=== PATIENT | male | born 1950 | race Caucasian/White ===

== ENCOUNTER → 2016-12-06 | Outpatient (CLI) | payer OTHER ==
--- NOTE | 2016-12-06 10:48 | XR ---
EXAMINATION TYPE: XR hand complete RT DATE OF EXAM: 12/06/2016 10:40 AM COMPARISON: NONE HISTORY: Puncture wound with swelling and possible infection TECHNIQUE: Three views are submitted. FINDINGS: The osseous structures are intact. Arthropathy of the DIP joints noted. Previous trauma suspected inv olving the first metacarpal. Mild arthropathy first MCP joint. No foreign body. No destructive changes to suggest osteomyelitis. IMPRESSION: 1. No diagnostic evidence of osteomyelitis..
== END | disposition home or self-care (01) ==
LOC: RADXRMAIN 10:19
PROVIDERS: ATTEND Emergency Medicine
DX: L03.011 Cellulitis of right finger (principal); S61.229A Laceration with foreign body of unspecified finger without damage to nail, initial encounter

== ENCOUNTER → 2016-12-09 | Outpatient (CLI) | payer OTHER ==
[2016-12-09 13:16] LABS: Basophils # (A) 0.1 k/uL (0-0.2); Basophils % (A) 1 %; CH 30.6; CHCM 33.3; Eosinophils # (A) 0.4 k/uL (0-0.7); Eosinophils % (A) 5 %; HCT 50.1 % (39.0-53.0); HDW 2.69; HGB 16.7 gm/dL (13.0-17.5); Luc # (Auto) 0.23; Luc % (Auto) 3; Lymphocytes # (A) 2.5 k/uL (1.0-4.8); Lymphocytes % (A) 28 %; MCH 30.7 pg (25.0-35.0); MCHC 33.2 g/dL (31.0-37.0); MCV 92.4 fL (80.0-100.0); Mean Platelet Volume 6.1; Monocytes # (A) 0.6 k/uL (0-1.0); Monocytes % (A) 6 %; Neutrophils # (A) 4.9 k/uL (1.3-7.7); Neutrophils % (A) 57 %; RBC 5.43 m/uL (4.30-5.90); RDW 14.7 % (11.5-15.5); WBC 8.7 k/uL (3.8-10.6); WBC (Perox) 8.66
== END | disposition home or self-care (01) ==
LOC: LABPAT 12:56
PROVIDERS: ATTEND Orthopaedic Surgery
DX: Z01.812 Encounter for preprocedural laboratory examination (principal); L02.511 Cutaneous abscess of right hand
CPT/HCPCS: 36415; 85025

== ENCOUNTER 2016-12-10 10:25 | Day surgery (SDC) | payer OTHER ==
[2016-12-09 14:17] VITALS: BMI 21.1
[~2016-12-10 10:25] MED LIST: DEXAMETHASONE SOD PHOSPHATE 10 MG/ML 1 ML VIAL IV ONE; HYDROmorphone 1 MG/ML 1 ML SYRINGE IVP PRN; LACTATED RINGERS 1,000 ML IV SCH; MIDAZOLAM 2 MG/2 ML VIAL IV PRN; ONDANSETRON 4 MG/2 ML VIAL IVP ONE; ceFAZolin 1,000 MG in DEXTROSE/WATER 1 50ML.BAG IV ONE
[2016-12-10 12:26] VITALS: TEMP 97.3
[2016-12-10] MEDS ORDERED: LIDOCAINE 1% 20 ML VIAL (10MG/ML) FOR IV START INTRADERMA ONE (12:30)
--- NOTE | 2016-12-10 13:19 | HP ---
DATE OF ADMISSION: CHIEF COMPLAINT: Right thumb swelling and pain. 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 He was unloading a machine when several metallic slivers went through his glove into his right thumb. He pulled those out himself. Subsequently, he had increasing pain and swelling and went to the [facility] 12/06[facility]. He had an attempted incision and drainage and in addition was placed on oral antibiotics. He notes progressive drainage and swelling. He has been off work. PAST MEDICAL HISTORY: Negative. PAST SURGICAL HISTORY: Negative. CURRENT MEDICATIONS: Aleve and Bactrim. FAMILY HISTORY: Significant for cancer. SOCIAL HISTORY: Significant for 1 pack per day tobacco use. Sixteen-point review of systems otherwise reviewed and is noncontributory. He denies fevers or chills. On examination, the patient is approximately 5 feet 9 inches, 150 pounds of mesomorphic habitus. HEENT exam is nonfocal. Neck is supple. He is nontender about the right shoulder, elbow and wrist. On examination of his right hand, he has large swelling of the distal tip of the right thumb. He has a small puncture wound over the volar distal tip. There is purulent drainage along with moderate fluctuance. He is nontender over the flexor sheath proximally. He has mild right stiffness. The nail plate is intact. Capillary refill is less than 2 seconds. Light touch is distally intact. X-rays to include multiple views of the right hand from the hospital show no definite radiopaque foreign body. IMPRESSION: Right thumb felon/status post puncture wound. RECOMMENDATIONS: I talked to the patient regarding his treatment options. At this point, I would recommend proceeding with formal incision and drainage with irrigation and debridement. We will likely remove his nail plate as well. Likely, we will perform that as an outpatient procedure utilizing local anesthetic and IV sedation. The risks and benefits were discussed at length in layman's terms.
[2016-12-10] MEDS ORDERED: PROPOFOL 10 MG/ML 20 ML VIAL IV ONE (13:26)
[2016-12-10] MEDS ORDERED: MIDAZOLAM 2 MG/2 ML VIAL ONE (13:26)
[2016-12-10] MEDS ORDERED: LIDOCAINE 1% INJ 10MG/ML (20 ML MDV) ONE (13:26)
[2016-12-10] MEDS ORDERED: fentaNYL (PF) 50 MCG/ML 2 ML AMP ONE (13:26)
[2016-12-10] MEDS ORDERED: BUPIVACAINE (PF) 0.25% 30 ML VIAL SQ ONE (13:26)
[2016-12-10] MEDS ORDERED: PHENYLEPHRINE-0.9% NACL SYG 1 MG/10 ML SYRINGE ONE (13:26)
--- NOTE | 2016-12-10 13:51 | P.OP ---
Date of Procedure: 12/10/16 Preoperative Diagnosis: Right thumb felon/abscess Postoperative Diagnosis: Same Procedure(s) Performed: Incision and drainage right thumb felon/abscess with irrigation and debridement Anesthesia: MAC, local Surgeon: Evaristo Beckford Estimated Blood Loss (ml): 1 Pathology: other (Cultures) Condition: stable Disposition: PACU Indications for Procedure: The patient's a 66-year-old male who injured himself at work recently and developed a right thumb felon/abscess. He had a previous attempted incision and drainage along with short course of oral antibiotics with worsening of his symptoms. A discussion of the risks and benefits of operative intervention was made with patient. He opted to proceed. Specific risks to include persistence of infection and possible need for subsequent procedures was discussed. Informed consent was obtained. Operative Findings: As below Description of Procedure: The patient was brought to the operating room, and after induction of IV sedation a digital block was placed in the right thumb utilizing 10 mL of quarter percent plain Marcaine. The right upper extremity was prepped and draped in normal fashion. A [place] drain was used as a tourniquet. A 3 x 3 mm puncture wound was noted along the volar distal tip of the right thumb. A 1 cm incision was made over the distal tip. Skin was incised sharply. Subcutaneous tissues were divided bluntly. A small amount of purulent material was expressed. Cultures were obtained. The skin edges were debrided sharply with a scalpel. Septations were bluntly dissected. The wound was then copiously irrigated with normal saline. The skin was loosely reapproximated with simple 3-0 nylon sutures. A sterile dressing was applied. The tourniquet was removed. The patient was awoken from sedation and transferred to recovery room in good condition. Blood loss was estimated at 1 mL. No complications were incurred. Sponge and needle counts were correct at the end the case.
[2016-12-10 14:43] VITALS: RESP 18
[2016-12-10 15:20] VITALS: BP 115/79; PULSE 78
== END 2016-12-10 15:56 | disposition home or self-care (01) ==
LOC: OR 10:25
PROVIDERS: ATTEND Orthopaedic Surgery
DX: L03.011 Cellulitis of right finger (principal); L02.511 Cutaneous abscess of right hand; F17.200 Nicotine dependence, unspecified, uncomplicated; Z79.2 Long term (current) use of antibiotics; Z79.1 Long term (current) use of non-steroidal anti-inflammatories (NSAID)
CPT/HCPCS: 11042; 87070; 87205; 87075; 87077; 87186; J2250; J1100; J2405; J2001; J3010; J0690; J2370; J2704

== ENCOUNTER 2017-03-08 02:28 | Emergency (ER) | payer BC, OTHER ==
[2017-03-08 02:37] VITALS: BP 124/71; PULSE 86; RESP 18; TEMP 97.8
[2017-03-08] MEDS ORDERED: SULFAMETHOX-TMP 800-160MG 1 EACH TAB PO STA (02:47)
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
== END 2017-03-08 02:56 | disposition home or self-care (01) ==
LOC: EC 02:28
DX: L02.416 Cutaneous abscess of left lower limb (principal); L02.415 Cutaneous abscess of right lower limb; L02.413 Cutaneous abscess of right upper limb; F17.200 Nicotine dependence, unspecified, uncomplicated; Z86.19 Personal history of other infectious and parasitic diseases
CPT/HCPCS: 99283

== ENCOUNTER → 2017-04-26 | Outpatient (CLI) | payer BC ==
--- NOTE | 2017-04-26 09:05 | US ---
EXAMINATION TYPE: US duplex aorta DATE OF EXAM: 04/26/2017 COMPARISON: NONE CLINICAL HISTORY: Abdominal Aortic Aneurysm screening Z78.9. EXAM MEASUREMENTS: Abdominal Aorta: Proximal: 3.0 x 2.9 cm Mid: 2.3 x 2.2 cm Distal: 2.5 x 2.8 cm Bifurcation: rt 1.6 x 1.2 cm lt 1.4 x 1.0 cm Atherosclerotic changes are noted. IMPRESSION: 1. There is atherosclerotic changes aorta with a borderline aneurysm involving the proximal aorta wilmer suring 3.0 x 2.9 cm.
== END | disposition home or self-care (01) ==
LOC: RADUSWWP 08:19
PROVIDERS: ATTEND Family Medicine
DX: I70.0 Atherosclerosis of aorta (principal)
CPT/HCPCS: 93979